=== PATIENT | male | born 1990 | race Caucasian/White ===

== ENCOUNTER 2019-02-13 13:38 | Inpatient (IN) | payer BC ==
[~2019-02-13] VITALS: Ht 190.5 cm; Wt 85.9 kg
--- NOTE | 2019-02-13 14:27 | NUR ---
PATIENT MEETS NEW CRITERIA. CINA=[id number]. PATIENT WANTS TO FOLLOW UP WITH [facility] IN [place], [place] FOR OUTPATIENT TREATMENT. PATIENT HAS A PRESCHEDULED APPOINTMENT ON February AT 10:00AM. IVAN VELIZ B.A. AUTOMATIC PRESSER
[2019-02-13 14:50] VITALS: BP 106/66
[2019-02-13] MEDS ORDERED: ADVAIR 250/501 EA INH (14:58)
[2019-02-13] MEDS ORDERED: PROAIR HFA8.5 GM INH (14:59)
[2019-02-13 15:11] LABS: BASO # 0.1 10*3/uL (0.0-0.1); BASO % 1.4 % (0.0-1.0); EOS # 0.7 10*3/uL (0.0-0.4); EOS % 10.5 % (1.0-4.0); HEMATOCRIT 43.5 % (42.0-52.0); HEMOGLOBIN 14.8 g/dl (14.0-18.0); LYMPH # 2.3 10*3/uL (1.3-4.4); LYMPH % 33.2 % (27.0-41.0); MEAN CELL VOLUME 80.9 fl (80.0-94.0); MEAN CORPUSCULAR HGB 27.5 pg (27.0-31.0); MEAN PLATELET VOLUME 10.3 fl (9.6-12.3); MONO # 0.6 10*3/uL (0.1-1.0); MONO % 8.2 % (3.0-9.0); NEUT # 3.2 10*3/uL (2.3-7.9); NEUT % 46.6 % (47.0-73.0); PLATELET COUNT AUTOMATED 236 10*3/uL (130-400); RED BLOOD COUNT 5.38 10*6/uL (4.50-5.90); RED CELL DISTRI WIDTH 13.2 % (0-14.5)
[2019-02-13 15:25] LABS: ALBUMIN 4.2 gm/dl (3.1-4.5); ALKALINE PHOSPHATASE 111 U/L (45-117); BUN 14 mg/dl (7-24); CHLORIDE 107 mmol/L (98-107); CREATININE 1.02 mg/dL (0.70-1.30); SGOT/AST 18 IU/L (3-35); SGPT/ALT 34 U/L (12-78); SODIUM 141 mmol/L (136-145); TOTAL PROTEIN 7.4 gm/dL (6.4-8.2)
[2019-02-13 15:26] LABS: ETHYL ALCOHOL < 3.0 mg/dl (<3)
[2019-02-13 16:00] VITALS: BP 136/71
[2019-02-13 17:04] LABS: BILIRUBIN NEGATIVE (NEGATIVE); BLOOD NEGATIVE (NEGATIVE); CLARITY CLEAR (CLEAR); COLOR YELLOW (YELLOW); GLUCOSE NEGATIVE (NEGATIVE); KETONE NEGATIVE (NEGATIVE); LEUKO ESTERASE TRACE (NEGATIVE); NITRITE NEGATIVE (NEGATIVE); UROBILINOGEN 0.2 E.U./dl (0.2-1.0)
[2019-02-13 17:11] LABS: BACTERIA TRACE
[2019-02-13 17:14] LABS: URINE AMPHETAMINES < 1000 (1000ng/ml); URINE BARBITURATES < 200 (200ng/ml); URINE BENZODIAZEPINES < 200 (200ng/ml); URINE CANNABINOIDS (THC) < 50 (50ng/ml); URINE COCAINE < 300 (300ng/ml); URINE METHADONE < 300 (300ng/ml); URINE OPIATES > 300 (300ng/ml)
[2019-02-13 17:18] LABS: URINE PHENCYCLIDINE < 25 (25ng/ml)
[2019-02-13 20:00] VITALS: BP 123/71
--- NOTE | 2019-02-13 20:13 | NUR ---
24 HR chart check completed.
--- NOTE | 2019-02-13 21:00 | NUR ---
RESTING IN BED WATCHING TV WITH NO ACUTE DISTRESS NOTED. RESPIRATIONS EASY. LUNGS CLEAR. PULSE OX 98% RA. OFFERED AND EDUCATED REGARDING TEDS, DECLINED. CALL LIGHT WITHIN REACH. NO VOICED COMPLAINTS
--- NOTE | 2019-02-13 21:52 | NUR ---
Patient displaying withdrawal symptoms, including: irritability, anxiousness, restlessness and agitation. Scheduled/PRN medications provided, SEE EMAR. Will continue to monitor medication effectiveness.
--- NOTE | 2019-02-13 23:00 | NUR ---
Patient SLEEPING. Responding to scheduled medications with fewer complaints of pain and anxiety.
[2019-02-14] VITALS: BP 118/65
--- NOTE | 2019-02-14 00:10 | NUR ---
MEDICATED WITH ROUTINE SUBUTEX TO ASSIST WITH WITHDRAWAL. WILL MONITOR
[2019-02-14 04:00] VITALS: BP 113/69
--- NOTE | 2019-02-14 06:00 | NUR ---
Patient resting. Responding to scheduled medications with fewer complaints of pain and anxiety.
[2019-02-14 08:00] VITALS: BP 107/62
--- NOTE | 2019-02-14 13:27 | NUR ---
[place] STAFF FOLLOWED UP WITH PATIENT. PATIENT'S AFTERCARE APPOINTMENT HAS BEEN CONFIRMED. PATIENT WILL BE GOING TO [facility] IN [place]. PATIENT AGREES AND UNDERSTANDS HIS AFTERCARE PLAN. IVAN VELIZ B.A. INTAKE COORDIANTOR
[2019-02-14 16:00] VITALS: BP 118/70
[2019-02-14 20:00] VITALS: BP 133/68
--- NOTE | 2019-02-14 20:50 | NUR ---
24 HR chart check completed.
--- NOTE | 2019-02-14 21:00 | NUR ---
RESTING IN BED WATCHING TV WITH NO DISTRESS NOTED. RESPIRATIONS EASY. LUNGS CLEAR. PULSE OX 96% RA. CALL LIGHT WITHIN REACH. NO VOICED COMPLAINTS
[2019-02-15] VITALS: BP 109/67
--- NOTE | 2019-02-15 | NUR ---
REMAINS AWAKE BUT CALM. ROUTINE SUBUTEX PROVIDED TO ASSIST WITH WITHDRAWAL
--- NOTE | 2019-02-15 02:00 | NUR ---
Patient resting. Responding to scheduled medications with fewer complaints of pain and anxiety.
--- NOTE | 2019-02-15 06:00 | NUR ---
SLEPT THROUGHOUT NIGHT WITH NO DISTRESS NOTED. RESPIRATIONS EASY. CALL LIGHT WITHIN REACH. NO VOICED COMPLAINTS THIS SHIFT
[2019-02-15 08:00] VITALS: BP 128/73
--- NOTE | 2019-02-15 08:45 | NUR ---
PT MEDICATED WITH ROBAXIN AND MOTRIN FOR C/O LEG DISCOMFORT. WILL MONITOR.
--- NOTE | 2019-02-15 09:45 | NUR ---
PRN MEDS EFFECTIVE PER PT.
[2019-02-15 16:00] VITALS: BP 115/73
--- NOTE | 2019-02-15 18:01 | NUR ---
PT RESTING IN BED. DENIES ANY NEEDS. WILL MONITOR.
--- NOTE | 2019-02-15 21:31 | NUR ---
PRN REQUIP, ROBAXIN AND VISTARIL GIVEN FOR PT COMPLAINTS OF MUSCLE ACHES, RESTLESS LEGS AND ANXIETY. CALL LIGHT WITHIN REACH, WILL MONITOR
--- NOTE | 2019-02-15 22:35 | NUR ---
PRN MEDICATION FROM EARLIER PATIENT STATED SOMEWHAT EFFECTIVE. STATES HE FEELS A LITTLE BETTER. PRN TRAZADONE GIVEN FOR PT COMPLAINTS OF SLEEPESSLESSNES. CALL LIGHT WITHIN REACH, WILL MONITOR
--- NOTE | 2019-02-15 23:19 | NUR ---
2ND DOSE OF PRN TRAZADONE GIVEN FOR PT COMPLAINTS OF CONTINUED SLEEPLESSNESS.CALL LIGHT WITHIN REACH, WILL MONITOR
[2019-02-16] VITALS: BP 141/74
--- NOTE | 2019-02-16 | NUR ---
2ND DOSE OF TRAZADONE APPEARS EFFECTIVE, PT SLEEPING
[2019-02-16 08:00] VITALS: BP 114/75
[2019-02-16] MEDS ORDERED: ZOFRAN 4 MG ED2 TAB PO (11:09)
[2019-02-16] MEDS ORDERED: ATARAX,VISTARIL50 MG PO (11:09)
[2019-02-16] MEDS ORDERED: ROPINIROLE HYD0.5 MG PO (11:09)
--- NOTE | 2019-02-16 11:31 | NUR ---
PT DISCHARGED AT THIS TIME. INSTRUCTIONS REVIEWED AND PRESCRIPTIONS GIVEN TO PT. PT AMBULATED OFF THE FLOOR TO PRIVATE CAR.
== END 2019-02-16 11:31 | disposition home or self-care (01) | DRG 897 ==
LOC: 5E 13:38
PROVIDERS: Student in an Organized Health Care Education/Training Program; ADMIT Internal Medicine
DX: F11.23 Opioid dependence with withdrawal (principal); F41.9 Anxiety disorder, unspecified; J45.909 Unspecified asthma, uncomplicated; Z79.899 Other long term (current) drug therapy